=== PATIENT | female | born 1965 | race Hispanic/Latino ===

== ENCOUNTER 2019-10-07 12:12 | Day surgery (SDC) | payer MEDICARE, MEDICAID ==
[2019-10-01 10:34] VITALS: BMI 36.6
[2019-10-07] MEDS ORDERED: Lidocaine 1% w/Epinephrine 1:100K 20 ML VIAL ONE (14:12)
[2019-10-07] MEDS ORDERED: Fentanyl 100 MCG/2 ML VIAL ONE ×2 (14:16→15:57)
[2019-10-07] MEDS ORDERED: PROPOFOL 200 MG/20 ML VIAL ONE (14:35)
[2019-10-07] MEDS ORDERED: Ondansetron PF 4 MG/2 ML Vial ONE (14:35)
[2019-10-07] MEDS ORDERED: Glycopyrrolate 0.2 MG/ML 5 ML SYRINGE ONE (14:35)
[2019-10-07] MEDS ORDERED: Lidocaine 1% PF 5 ML VIAL ONE (14:35)
[2019-10-07] MEDS ORDERED: PHENYLEPHRINE-NS 100 MCG/ML 10 ML SYRINGE ONE (14:35)
[2019-10-07] MEDS ORDERED: Rocuronium Bromide 10 MG/ML (10ML VIAL) ONE (14:35)
[2019-10-07] MEDS ORDERED: PROPOFOL 20 ML ONE (15:25)
--- NOTE | 2019-10-07 17:04 | EKG ---
Test Reason : PREOP Blood Pressure : / mmHG Vent. Rate : 086 BPM Atrial Rate : 086 BPM P-R Int : 156 ms QRS Dur : 076 ms QT Int : 374 ms P-R-T Axes : 043 105 052 degrees QTc Int : 447 ms Normal sinus rhythm Rightward axis Borderline ECG No previous ECGs available Confirmed by DR. Rubi OJEDA ([id number]) on 10/07/2019 5:04:20 PM Referred By: RUDY Confirmed By:DR. Rubi OJEDA
--- NOTE | 2019-10-08 09:47 | OP ---
DATE OF PROCEDURE: 10/07/2019 PREOPERATIVE DIAGNOSES: Right eyelid mass, right buccal mucosa mass, and right neck mass. POSTOPERATIVE DIAGNOSES: Right eyelid mass, right buccal mucosa mass, and right neck mass. PROCEDURES: Excision of right eyelid mass with complex primary closure, excision of right buccal mucosal mass and primary closure, excision of neck mass and complex primary closure. PERMIT: Procedures, benefits, risks including those of bleeding, infection, injury from anesthesia, allergic reaction, scarring or damage to surrounding tissues, necessitating revision, repair and alternatives were reviewed with the patient and family who expressed understanding of the information. The consent form was signed and witnessed and a paper copy of the consent form is available for review in the paper chart. INDICATIONS: This is a 54-year-old female patient presenting to the clinic with complaints of a right eyelid mass that is bothering her with blinking and bothering with occasional changes in vision and right buccal mucosal mass that is bothering the patient and causing her to bite it and occasionally bleed and then a right neck mass which is tender to palpation occasionally and will sometimes swell or increase and then decrease in size causing patient pain. Given these issues, the patient is brought to the operating room now for operative treatment. ASSISTANTS: None. FINDINGS: Right eyelid mass roughly 2 cm in size, right buccal mucosal mass roughly 2 cm in size and right neck mass roughly 4 cm in size. DESCRIPTION OF OPERATION: The patient was brought to the operating room and laid supine on the operating room table. General endotracheal anesthesia was administered. The right neck was infiltrated with 1% lidocaine with 1:100,000 epinephrine, roughly 4 mL and the right eye and right neck were prepped. The right eye was prepped with ophthalmic Betadine solution and the right neck was prepped with standard Betadine solution. After this was completed, the right eye mass was then grasped and then excised with sharp dissection with care to avoid a depth of dissection that would affect the eye. After the mass was removed, it was sent for permanent pathology and hemostasis was achieved with holding pressure for several minutes and after pressure was held, the right upper eyelid defect was closed primarily with 5-0 fast-absorbing gut suture. After this was achieved, the patient's head was turned to the left and the right neck was examined and an elliptical incision with some skin overlying the mass was removed and using a 15 blade scalpel to make an elliptical incision down from the epidermis through the dermis and into the subcutaneous tissue. After that elliptical incision was made, Adson's and tenotomy scissors were used to do blunt dissection and then sharp dissection to take a cuff of subcutaneous tissue around the mass extending down towards the sternocleidomastoid muscle. The mass was abutting the sternocleidomastoid muscle and a small amount of muscle tissue was excised and removed with the mass, which was sent for permanent pathology. The wound bed was examined and the muscle was cauterized with monopolar cautery and when the wound was dry and no bleeding was evident, deep sutures were placed to approximate the wound and decrease any space and the deep sutures were placed using 3-0 Vicryl suture and then the cutaneous layer was closed with 4-0 Prolene in a running continuous fashion. Next, the drapes were withdrawn and attention was turned to the buccal mucosal mass. Side-biting retractor was used to retract the teeth superiorly and inferiorly and expose the right buccal mucosal mass which was roughly 2 cm from the right anterior commissure. The mass was approximately 2 cm in size and was grasped with Adson's and retracted medially and then sharp dissection was used to remove the mass from the base of the mucosa, taking some underlying tissue down to some musculature. The wound base was cauterized with monopolar cautery to achieve hemostasis and after this was achieved, the wound was approximated using 4-0 chromic sutures. The mass was sent for permanent pathology. After excision of all 3 masses, the patient was examined and no bleeding was seen and the patient was turned over to Anesthesia for emergence. Job ID: [id number]
--- NOTE | 2019-10-10 07:17 | PQF ---
[facility] POST DISCHARGE CLINICAL DOCUMENTATION IMPROVEMENT CLARIFICATION FORM l Todays Date: 10/10/19 l Patients Name CAREN BAZZI l l Admit Date 10/07/19 l Disch Date 10/07/19 Medical Nurse Name Waylon Sagastume Email: [email or web address] Cell: [phone] To be completed by Medical Nurse: Present Clinical Indicators - Signs / Symptoms Results and Location in Medical Record [ ] Documentation of: [ ] [ ] Documentation of: [ ] [ ] Documentation of: [ ] [ ] Documentation of: [ ] [ ] Risks [ ] [ ] [ ] Treatment [ ] Epidermal inclusion cyst right neck Query for size (cm) of excised margins of cyst Total excision size with margins was 4 cms as dictated in my operative note. Thank you, please let me know if further clarification is needed. [ ] [ ] To be completed by Physician: TIMA HUERTA The documentation in this patients record requires clarification to ensure coding compliance and accuracy. Check the appropriate box and include in your discharge summary. [ ] [ ] [ ] [ ] Please check this box if this does not apply to this patient [ ] Unable to determine [ ] Other diagnosis: Review the following information and exercise your independent professional judgment in responding to the clarification. Based upon the clinical findings, risk factors, and treatment, please clarify if you are treating one of the above probable or suspected diagnoses. Physician Signature: Date Time MTDD
== END 2019-10-07 17:35 | disposition home or self-care (01) ==
LOC: SDC 12:12
PROVIDERS: ATTEND Student in an Organized Health Care Education/Training Program
PROC: 0HB1XZZ Excision of Face Skin, External Approach (ICD-10-PCS; principal; 2019-10-07)
PROC: 0CB4XZZ Excision of Buccal Mucosa, External Approach (ICD-10-PCS; 2019-10-07)
PROC: 0KB20ZZ Excision of Right Neck Muscle, Open Approach (ICD-10-PCS; 2019-10-07)
DX: L72.0 Epidermal cyst (principal); D10.39 Benign neoplasm of other parts of mouth; L91.8 Other hypertrophic disorders of the skin; H90.5 Unspecified sensorineural hearing loss; I10 Essential (primary) hypertension; E78.5 Hyperlipidemia, unspecified; F31.9 Bipolar disorder, unspecified; K21.9 Gastro-esophageal reflux disease without esophagitis; E11.9 Type 2 diabetes mellitus without complications; Z79.4 Long term (current) use of insulin; Z79.82 Long term (current) use of aspirin; Z79.899 Other long term (current) drug therapy; Z88.8 Allergy status to other drugs, medicaments and biological substances
CPT/HCPCS: 36416; 88304; 88305; 93005; 93010; J2405; J2704; J3010